=== PATIENT | male | born 1945 | race Two or more races ===

== ENCOUNTER → 2024-11-16 | Outpatient (CLI) | payer MEDICARE, MEDICAID, SELFPAY ==
--- NOTE | 2024-11-16 | XR_ITS ---
Examination: Bilateral hips, AP pelvis, 5 views Technique: AP, lateral views both hips, AP pelvis, 5 views Exam date and time: November 16, 2024 1202 hours INDICATIONS: Bilateral hip pain beginning 3 months ago, history left hip surgery 50 years ago. FINDINGS: Prominent osteopenia Moderate bilateral hip osteoarthritis Partial visualization fractures screws of the left femoral sideplate, healed fracture distal femoral shaft IMPRESSION: Moderate bilateral hip osteoarthritis, no hip fractures Fracture at screws involving the left femoral sideplate, recommend left femur films follow-up
--- NOTE | 2024-11-16 | XR_ITS ---
Examination: Shoulder,left, 3 views Technique: Shoulder AP internal rotation, AP external rotation, Y view shoulder, 3 views Exam date and time :November 16, 2024 1202 hours INDICATIONS: Multiple falls over the last 3 months with shoulder pain FINDINGS: Prominent osteopenia Moderate narrowing glenohumeral joint Mild deformity of the axillary margin of the scapula IMPRESSION: Mild deformity of the axial margin of the scapula, recommend CT scan shoulder follow-up
== END | disposition home or self-care (01) ==
PROVIDERS: PCP Nurse Practitioner Primary Care; Referring Provider Nurse Practitioner Primary Care; Visit Provider Nurse Practitioner Primary Care
DX: M95.8 Other specified acquired deformities of musculoskeletal system (principal); M16.0 Bilateral primary osteoarthritis of hip; S72.92XA Unspecified fracture of left femur, initial encounter for closed fracture; W19.XXXA Unspecified fall, initial encounter
CPT/HCPCS: 73030; 73522

== ENCOUNTER → 2024-11-29 | Outpatient (CLI) | payer MEDICARE, MEDICAID, SELFPAY ==
--- NOTE | 2024-11-29 | XR_ITS ---
Examination: Left femur 2 views Technique one AP lateral left femur 2 views Exam date and time: November 29, 2024 1320 hours INDICATIONS: Left femur surgery 40 years ago with femur pain FINDINGS: Moderate left hip osteoarthritis 4 of the upper side plate orthopedic screws have fractured, however the femur has healed No acute fracture Severe osteopenia IMPRESSION: Moderate left hip osteoarthritis
== END | disposition home or self-care (01) ==
PROVIDERS: PCP Nurse Practitioner Primary Care; Referring Provider Nurse Practitioner Primary Care; Visit Provider Nurse Practitioner Primary Care
DX: M16.12 Unilateral primary osteoarthritis, left hip (principal)
CPT/HCPCS: 73552

== ENCOUNTER → 2024-12-24 | Outpatient (CLI) | payer MEDICARE, MEDICAID, SELFPAY ==
--- NOTE | 2024-12-24 10:49 | XR_ITS ---
Examination: Foot, right, 3 views Technique: AP, oblique, lateral views foot, 3 views Date and time of exam: December 24, 2024 10:54 AM Comparison June 20, 2022 INDICATIONS: Nonhealing wound right first toe noticed beginning 3 weeks ago, diabetic FINDINGS: Severe osteopenia No fracture. No luciano cortical bone destruction IMPRESSION: No luciano cortical bone destruction Consider MRI foot without contrast follow-up to best assess for osteomyelitis
--- NOTE | 2024-12-24 11:45 | XR_ITS ---
Examination: Retroperitoneal ultrasound, complete Technique: Multiple high resolution grayscale images of the retroperitoneum obtained, including kidneys and bladder. Exam date and time:December 24, 2024 1114 hours INDICATIONS: Hyponatremia diagnosis on laboratory examination several weeks ago. FINDINGS: Right kidney 10.9 x 6.2 x 5.2 cm renal cortex 1.8 cm Multiple benign cysts, the largest in the upper pole 23 mm Left kidney 12.7 x 6.7 x 5.3 cm cortex 2.2 cm Moderate bilateral renal parenchymal scar formation Mild perinephric stranding left kidney measuring up to 4 mm in thickness No hydronephrosis No bladder mass or bladder calculi Bladder prevoid volume 152 cc unable to void IMPRESSION: Moderate bilateral renal parenchymal scar formation No hydronephrosis
== END | disposition home or self-care (01) ==
LOC: CDIM 10:40
PROVIDERS: PCP Physician Assistant; Referring Provider Nurse Practitioner Primary Care; Visit Provider Nurse Practitioner Primary Care
DX: M79.674 Pain in right toe(s) (principal); R60.0 Localized edema; N28.89 Other specified disorders of kidney and ureter
CPT/HCPCS: 73630; 76770

== ENCOUNTER → 2025-01-19 | Outpatient (CLI) | payer MEDICARE, MEDICAID, SELFPAY ==
--- NOTE | 2025-01-19 11:30 | XR_ITS ---
Examination: CT left shoulder, without contrast. 2-D sagittal reconstructions. 2-D coronal reconstructions. 3-D reconstructions. Date and time of exam:January 19, 2025 1131 hours INDICATIONS: Left shoulder pain months CTDI: vol (mGy):13.1 DLP: (mGycm):329 Technique: Multiple 1.25 mm axial sections of the left shoulder have been obtained. 2-D sagittal and coronal reconstructions have been obtained. 3-D reconstructions have been obtained. Low dose protocols were performed. One or more of the following dose reduction techniques were used; automated exposure control, adjustment of the mA and/or KV according to patient size, use of iterative reconstruction technique. Findings: Significant osteopenia Moderate osteoarthritis glenohumeral joint No AC joint separation No fracture or dislocation No calcific tendinitis IMPRESSION: Moderate osteoarthritis glenohumeral joint As clinically warranted, consider MRI shoulder without contrast follow-up
== END | disposition home or self-care (01) ==
LOC: CCTX 10:58
PROVIDERS: PCP Nurse Practitioner Primary Care; Referring Provider Nurse Practitioner Primary Care; Visit Provider Nurse Practitioner Primary Care
DX: M19.012 Primary osteoarthritis, left shoulder (principal)
CPT/HCPCS: 73200

== ENCOUNTER → 2025-02-14 | Outpatient (BNVA) | payer MEDICARE, MEDICAID, SELFPAY | END | disposition home or self-care (01) | PROVIDERS: PCP Nurse Practitioner Primary Care; Referring Provider Nurse Practitioner Primary Care; Visit Provider Urology | DX: N40.1 Benign prostatic hyperplasia with lower urinary tract symptoms (principal); N13.8 Other obstructive and reflux uropathy; N32.81 Overactive bladder; R35.1 Nocturia; E66.9 Obesity, unspecified; E11.9 Type 2 diabetes mellitus without complications; I10 Essential (primary) hypertension; I25.10 Atherosclerotic heart disease of native coronary artery without angina pectoris; Z95.5 Presence of coronary angioplasty implant and graft; Z86.73 Personal history of transient ischemic attack (TIA), and cerebral infarction without residual deficits; G20.C Parkinsonism, unspecified; Z99.3 Dependence on wheelchair | CPT/HCPCS: 99202; G0463 ==

== ENCOUNTER → 2025-03-11 | Outpatient (CLI) | payer MEDICARE, MEDICAID, SELFPAY ==
[2025-03-11 10:49] LABS: Basophils % (Auto) 1 % (0-2.5); Eosinophils # (Auto) 0.3 Thou/mm3 (0.0-0.5); Eosinophils % (Auto) 5 % (0-10); Hematocrit 33.1 % (41.0-53.0); Hemoglobin 11.6 g/dL (13.5-16.0); Immature Granulocytes % (Auto) 1 % (0-0); Immature Granulocytes Auto 0.04 Thou/mm3 (0.00-0.00); Lymphocytes # (Auto) 1.3 Thou/mm3 (1.0-4.8); Lymphocytes % (Auto) 22 % (10-50); Mean Corpuscular Hemoglobin 31.4 pg (25.0-35.0); Mean Corpuscular Volume 90 fL (80-100); Monocytes # (Auto) 0.4 Thou/mm3 (0.0-0.8); Monocytes % (Auto) 7 % (0-12); Neutrophils # (Auto) 3.9 Thou/mm3 (1.8-7.7); Neutrophils % (Auto) 64 % (37-80); Nucleated Red Blood Cell % 0 /100 WBC (0); Platelet Count 237 Thou/mm3 (140-440); RDW Standard Deviation 45.2 fL (35.1-43.9)
--- NOTE | 2025-03-11 10:51 | EKG_ITS ---
[facility] Test Date: 2025-03-11 Pat Name: KAYLIE DAWSON Department: Room: - Gender: Male [employer]ic: MARLIN : 1945 Requested By: Kelvin Pierce Order Number: [id number] Reading MD: Kelvin Pierce Measurements Intervals [place] Rate: 73 P: 24 [place]: 188 QRS: -35 QRSD: 114 T: 35 QT: 380 QTc: 419 Interpretive Statements SINUS RHYTHM MARKED LEFT AXIS DEVIATION [QRS AXIS < -30] MODERATE INTRAVENTRICULAR CONDUCTION DELAY [110+ ms QRS DURATION] Compared to ECG 04/24/2019 19:53:52 Intraventricular conduction delay now present /[id number]/[id number]
[2025-03-11 10:55] LABS: Partial Thromboplastin Time 25.2 Seconds (22.0-36.0); Prothrombin Time 11.4 Seconds (9.0-12.2)
[2025-03-11 11:11] LABS: Alanine Aminotransferase 10 U/L (10-49); Albumin, Serum 4.4 gm/dL (3.4-4.8); Albumin/Globulin Ratio 1.6 (1.2-2.2); Alkaline Phosphatase 41 U/L (46-116); Anion Gap 9 (7-16); Aspartate Amino Transferase 16 U/L (0-34); BUN/Creatinine Ratio 13 Ratio (12-20); Bilirubin,Total 0.4 mg/dL (0.3-1.2); Blood Urea Nitrogen 17 mg/dL (9-23); Calcium 8.7 mg/dL (8.3-10.6); Calcium (Corrected) 8.7 mg/dL (8.5-10.1); Carbon Dioxide 22.2 mMol/L (20.0-31.0); Chloride 99 mMol/L (98-107); Creatinine (Component) 1.3 mg/dL (0.6-1.3); Globulin 2.8 gm/dL (2.3-3.5); Glucose 264 mg/dL (74-106); Osmolality,Calculated 271 (275-295); Potassium 4.5 mMol/L (3.4-5.1); Sodium 130 mMol/L (136-145); Total Protein 7.2 gm/dL (5.7-8.2); eGFR 56 See Note
== END | disposition home or self-care (01) ==
LOC: COPL 09:44
PROVIDERS: PCP Nurse Practitioner Primary Care; Referring Provider Student in an Organized Health Care Education/Training Program; Visit Provider Student in an Organized Health Care Education/Training Program
DX: Z01.818 Encounter for other preprocedural examination (principal); I73.9 Peripheral vascular disease, unspecified; Z79.01 Long term (current) use of anticoagulants
CPT/HCPCS: 36415; 80053; 85025; 85610; 85730; 93005